=== PATIENT | female | born 1985 | race Caucasian/White ===

== ENCOUNTER 2017-04-25 13:52 | Emergency (ER) | payer OTHER ==
[~2017-04-25] VITALS: Ht 162.6 cm; Wt 119.9 kg
[~2017-04-25 13:52] MED LIST: IBUPROFEN800 MG PO; Motrin PO; NO HOME MEDS; PRENATAL TABLE1 EACH PO
[2017-04-25 15:00] LABS: HEMATOCRIT 42.4 % (36.0-46.0); MCH 26.8 PG (29.0-34.0); MCHC 32.8 G/DL (30.0-36.0); MCV 81.7 FL (83-99); MEAN PLAT.VOLUME 10.2 uM^3 (9.5-12.4); PLATELET COUNT 275 K/uL (156-360); RBC DIS.WIDTH-SD 38.1 % (39-53); RED BLOOD COUNT 5.19 M/uL (3.80-5.20); WHITE BLOOD COUNT 7.9 K/uL (4.1-10.2)
[2017-04-25 15:16] LABS: CHLORIDE 106 mEq/L (99-109); POTASSIUM 4.2 mEq/L (3.7-5.4); SODIUM 140 mEq/L (136-147)
[2017-04-25 15:17] LABS: GLUCOSE 84 mg/dL (70-99)
[2017-04-25 15:19] LABS: ANION GAP 10 MEQ/L (2-14)
[2017-04-25 15:21] LABS: GFR ESTIMATE (CALCULATED) > 59 mL/min/
[2017-04-25 15:22] LABS: UREA NITROGEN (BUN) 19 mg/dL (9-23)
[2017-04-25 15:23] LABS: TROP-I INTERPRETATION NEGATIVE; TROPONIN-I < 0.01 ng/mL (0.0-0.30)
[2017-04-25] MEDS ORDERED: PREDNISONE50 MG PO (15:51)
[2017-04-25 16:20] VITALS: BP 136/94
== END 2017-04-25 16:22 | disposition home or self-care (01) ==
LOC: EME 13:52
DX: M54.12 Radiculopathy, cervical region (principal)
CPT/HCPCS: 71020; 80048; 84484; 85027; 93005; 99281; 99284

== ENCOUNTER 2018-03-19 17:24 | Emergency (ER) | payer SELFPAY ==
[~2018-03-19] VITALS: Ht 162.6 cm; Wt 127.6 kg
[~2018-03-19 17:24] MED LIST changes: +PREDNISONE50 MG PO
[2018-03-19 17:54] LABS: HEMATOCRIT 36.6 % (36.0-46.0); HEMOGLOBIN 12.2 G/DL (11.9-15.5); MCH 27.9 PG (29.0-34.0); MCHC 33.3 G/DL (30.0-36.0); MCV 83.6 FL (83-99); PLATELET COUNT 283 K/uL (156-360); RBC DIS.WIDTH-CV 13.2 % (11.8-14.6); RBC DIS.WIDTH-SD 40.2 % (39-53); RED BLOOD COUNT 4.38 M/uL (3.80-5.20); WHITE BLOOD COUNT 9.2 K/uL (4.1-10.2)
[2018-03-19 19:09] LABS: APPEARANCE SL.HAZY ((CLEAR)); BILIRUBIN NEGATIVE; BLOOD LARGE; GLUCOSE (STRIP) NEGATIVE; KETONES NEGATIVE; LEUKOCYTES NEGATIVE; NITRITE NEGATIVE; PROTEIN (STRIP) 100; SPECIFIC GRAVITY 1.008 (1.000-1.030); UROBILINOGEN 0.2 MG/DL (0.2-1.0)
[2018-03-19 19:12] LABS: COLOR RED ((YELLOW))
[2018-03-19 19:26] LABS: RED BLOOD CELLS TNTC /HPF (0-5)
[2018-03-19 19:27] LABS: BACTERIA RARE /HPF; EPITHELIAL CELLS RARE /HPF; MUCUS NONE SEEN /LPF; UCUL ADDED? YES
[2018-03-19 19:33] VITALS: BP 165/118
== END 2018-03-19 19:35 | disposition home or self-care (01) ==
LOC: EME 17:24
DX: O03.4 Incomplete spontaneous abortion without complication (principal)
CPT/HCPCS: 76801; 81003; 84702; 85027; 87086; 99281; 99284